=== PATIENT | female | born 1990 | race Caucasian/White ===

== ENCOUNTER 2022-11-23 08:31 | Day surgery (SDC) | payer OTHER ==
[~2022-11-23] VITALS: Ht 154.9 cm; Wt 63.0 kg
[~2022-11-23 08:31] MED LIST: PRENATE ADVANCE PO; ZYRTEC10 M3 PO
[2022-11-23] MEDS ORDERED: NAPR500T14 PO (10:33)
[2022-11-23] MEDS ORDERED: MORGIDOX100 MG PO (10:33)
== END 2022-11-23 15:20 | disposition home or self-care (01) ==
LOC: CIR.AMB 08:31
PROVIDERS: ATTEND Obstetrics & Gynecology
DX: N84.0 Polyp of corpus uteri (principal); D25.0 Submucous leiomyoma of uterus; N92.0 Excessive and frequent menstruation with regular cycle; Z20.822 Contact with and (suspected) exposure to COVID-19; N91.1 Secondary amenorrhea; I10 Essential (primary) hypertension; Z88.6 Allergy status to analgesic agent